=== PATIENT | male | born 1965 | race Caucasian/White ===

== ENCOUNTER 2017-03-20 19:57 | Inpatient (IN) | payer MEDICAID, OTHER ==
[~2017-03-20] VITALS: Ht 170.2 cm; Wt 103.2 kg
[~2017-03-20 19:57] MED LIST: ALBUTEROL; BUDE10.2; LISI1TAB3 PO; LISINOPRIL; PAXIL; PREDNISONE; SINGULAIR; XANAX
[2017-03-20] MEDS ORDERED: MORPHINE SULFATE 4 MG/ML, 1ML IVPush PRN (21:00)
[2017-03-20] MEDS ORDERED: SODIUM CHLORIDE 0.9% 1,000ML IVBOLUS ONE (21:00)
[2017-03-20] MEDS ORDERED: SODIUM CHLORIDE FLUSH 10ML SYR IVF ONE (21:00)
[2017-03-20] MEDS ORDERED: ONDANSETRON 2MG/ML, 2ML IVP ONE (21:00)
[2017-03-20] MEDS ORDERED: MORPHINE SULFATE 4 MG/ML, 1ML ONE (21:09)
[2017-03-20] MEDS ORDERED: ONDANSETRON 2MG/ML, 2ML ONE (21:10)
[2017-03-20] MEDS ORDERED: PLEASE ENTER ALLERGIES MC SCH ×2 (21:30)
[2017-03-20 21:35] LABS: ASPARTATE AMINO TRANSFERASE 20 U/L (15-37); BLOOD UREA NITROGEN 22 mg/dL (7-18)
[2017-03-20 21:39] LABS: IS PT STATUS REG ER OR PRE ER? YES
[2017-03-20] MEDS ORDERED: AZITHROMYCIN 500 MG TABLET ONE (22:23)
[2017-03-20] MEDS ORDERED: AZITHROMYCIN 500 MG TABLET PO SCH (22:30)
[2017-03-20] MEDS ORDERED: ALBUTEROL/IPRATROPIUM 2.5MG/0.5MG, 3 ML NPPB PRN (23:30)
[2017-03-21] MEDS: SODIUM CHLORIDE 0.9% 1,000 ML IV SCH ×3 (01:06→15:52)
[2017-03-21 02:00] VITALS: BP 100/67
[2017-03-21] MEDS: methylPREDNISolone SOD SUCC 40 MG/ML IVPush SCH ×4 (02:21→23:49)
[2017-03-21] MEDS: ENOXAPARIN 40 MG/0.4 ML SQ SCH (02:21)
[2017-03-21] MEDS ORDERED: ALBUTEROL/IPRATROPIUM 2.5MG/0.5MG, 3 ML NPPB PRN ×2 (02:30→23:30)
[2017-03-21 02:33] VITALS: BP 103/60
[2017-03-21 07:54] VITALS: BP 106/67
[2017-03-21] MEDS ORDERED: FLUTICASONE/VILANTEROL 100-25MCG/INH INH SCH (09:00)
[2017-03-21 13:20] VITALS: BP 107/64
[2017-03-21] MEDS ORDERED: CEFTRIAXONE 1,000 MG in SODIUM CHLORIDE 0.9% 50 ML IV SCH (17:30)
[2017-03-21] MEDS: DOXYCYCLINE 100 MG in DEXTROSE 5% 250 ML IV SCH (18:41)
[2017-03-21 20:00] VITALS: BP 115/61
[2017-03-22] MEDS ORDERED: ALBU0.63 NEB
[2017-03-22] MEDS ORDERED: ALPR0.25 PO
[2017-03-22] MEDS ORDERED: FLUT1AER INH
[2017-03-22] MEDS ORDERED: ZOLP-413 PO
[2017-03-22] MEDS ORDERED: ALBU18HF INH
[2017-03-22] MEDS ORDERED: PARO12.517 PO
[2017-03-22 02:00] VITALS: BP 122/73
[2017-03-22] MEDS ORDERED: TRAZODONE 100MG TABLET PO ONE (02:00)
[2017-03-22] MEDS: ENOXAPARIN 40 MG/0.4 ML SQ SCH (02:15)
[2017-03-22] MEDS: SODIUM CHLORIDE 0.9% 1,000 ML IV SCH ×2 (02:15→11:00)
[2017-03-22] MEDS: DOXYCYCLINE 100 MG in DEXTROSE 5% 250 ML IV SCH (06:13)
[2017-03-22 06:57] LABS: BLOOD UREA NITROGEN 21 mg/dL (7-18)
[2017-03-22 07:14] LABS: DIFF TOTAL CELLS COUNTED 100 CELL DIFF
[2017-03-22 07:16] LABS: VERIFY COUNTS? YES
[2017-03-22 07:36] VITALS: BP 117/76
[2017-03-22] MEDS: methylPREDNISolone SOD SUCC 40 MG/ML IVPush SCH (08:49)
[2017-03-22] MEDS ORDERED: CEFD300C37 PO (10:53)
[2017-03-22] MEDS ORDERED: DOXY100T PO (10:53)
== END 2017-03-22 13:10 | disposition home or self-care (01) | DRG 682 ==
LOC: ED 21:29 → EDIP 22:20 → 4EST 23:26
PROVIDERS: ADMIT Internal Medicine; ATTEND Internal Medicine
DX: N17.0 Acute kidney failure with tubular necrosis (principal); J96.21 Acute and chronic respiratory failure with hypoxia; J44.1 Chronic obstructive pulmonary disease with (acute) exacerbation; J45.901 Unspecified asthma with (acute) exacerbation; D72.829 Elevated white blood cell count, unspecified; G89.29 Other chronic pain; M54.9 Dorsalgia, unspecified; M25.50 Pain in unspecified joint; K21.9 Gastro-esophageal reflux disease without esophagitis; I11.9 Hypertensive heart disease without heart failure; E86.0 Dehydration; E66.9 Obesity, unspecified; Z68.35 Body mass index [BMI] 35.0-35.9, adult; Z91.018 Allergy to other foods; Z82.49 Family history of ischemic heart disease and other diseases of the circulatory system; Z83.3 Family history of diabetes mellitus; Z99.81 Dependence on supplemental oxygen
CPT/HCPCS: 36415; 71010; 80048; 80053; 83880; 84145; 84484; 85025; 87040; 93005; 96361; 96374; 96375; J0696; J1650; J2405; J7060; J2920; J7030; J7512

== ENCOUNTER 2019-05-12 01:47 | Emergency (ER) | payer MEDICAID, OTHER ==
[~2019-05-12] VITALS: Ht 170.2 cm; Wt 99.0 kg
[~2019-05-12 01:47] MED LIST changes: +ALBU0.63 NEB; +ALBU18HF INH; +ALPR0.25 PO; +CEFD300C37 PO; +DOXY100T PO; +FLUT1AER INH; +PARO12.517 PO; +ZOLP-413 PO
[2019-05-12 01:50] VITALS: BP 151/88
--- NOTE | 2019-05-12 02:21 | NUR ---
na x1
--- NOTE | 2019-05-12 02:21 | NUR ---
NOT IN LOBBY X1
--- NOTE | 2019-05-12 02:23 | NUR ---
WHEN PT. WAS CALLED TO COME BACK TO ROOM THIS RN WITNESSED PT. WALKING OUT OF ED. RN WALKED OUT DOOR TO CALL PT. AND PT. SHOUTED "YOU ARE CALLING EVERYONE BACK BEFORE ME THIS IS BULLSHIT I AM GOING TO [facility]!" THIS RN EXPLAINED THAT OTHERS HAD BEEN WATING IN THE LOBBY PRIOR TO HIM AND HE SHOUTED "I DON'T CARE BITCH, YOU KEEP CALLING THE SAME NAME AN OBVIOUSLY HE IS NOT HERE. SHUT UP BITCH".
== END 2019-05-12 02:27 | disposition left against medical advice (07) ==
LOC: ED 02:16
DX: R06.02 Shortness of breath (principal); M79.10 Myalgia, unspecified site; Z53.21 Procedure and treatment not carried out due to patient leaving prior to being seen by health care provider
CPT/HCPCS: 93005; 99281

== ENCOUNTER 2020-07-18 10:32 | Emergency (ER) | payer MEDICAID ==
[~2020-07-18] VITALS: Ht 170.2 cm; Wt 99.6 kg
[~2020-07-18 10:32] MED LIST changes: +LISI1TAB23 PO; -LISI1TAB3 PO
--- NOTE | 2020-07-18 10:58 | NUR ---
ASSUMED CARE OF PATIENT. APPLIED CONTINUOUS SPO2 AND CARDIAC MONITORS TO PATIENT.
[2020-07-18] MEDS ORDERED: METHOCARBAMOL 750 MG TABLET PO ONE (11:00)
[2020-07-18] MEDS ORDERED: METHOCARBAMOL 750 MG TABLET ONE (11:05)
[2020-07-18 11:56] LABS: ALBUMIN 3.5 g/dL (3.4-5.0); ANION GAP 5 mmol/L (5-15); CALCIUM 8.7 mg/dL (8.5-10.1); CHLORIDE 111 mmol/L (98-107); CREATININE 1.21 mg/dL (0.7-1.3)
[2020-07-18 11:59] LABS: BASOPHILS # (AUTO) 0.03 x10^3/uL (0-0.1); BASOPHILS % (AUTO) 0 % (0-1); EOSINOPHILS # (AUTO) 0.11 x10^3/uL (0-0.4); EOSINOPHILS % (AUTO) 2 % (1-7); LYMPHOCYTES # (AUTO) 1.38 x10^3/uL (1-3.4); LYMPHOCYTES % (AUTO) 18 % (22-44); MD NO; MEAN CORPUSCULAR HGB CONC 32.8 g/dL (33.2-36.2); MEAN CORPUSCULAR VOLUME 97.8 fL (81-97); MEAN PLATELET VOLUME 8.2 fL (7.4-10.4); MONOCYTES # (AUTO) 0.56 x10^3/uL (0.2-0.8); MONOCYTES % (AUTO) 7 % (2-9); NEUTROPHILS # (AUTO) 5.44 x10^3/uL (1.8-6.8); NEUTROPHILS % (AUTO) 72 % (42-75); PLATELET COUNT 209 x10^3/uL (130-400); RED BLOOD COUNT 4.47 x10^6/uL (4.38-5.82); RED CELL DISTRIBUTION WIDTH 13.6 % (9.4-14.8); TROPONIN I < 0.015 ng/mL (0.000-0.045)
[2020-07-18 12:09] VITALS: BP 139/72
--- NOTE | 2020-07-18 12:17 | NUR ---
PT REPORTS PAIN IMPROVED AFTER MEDICATION
--- NOTE | 2020-07-18 14:20 | NUR ---
Patient/Caregiver given discharge instructions and they have confirmed that they understand the instructions. Patient ambulatory with steady gait.
== END 2020-07-18 14:22 | disposition home or self-care (01) ==
LOC: ED 11:05
DX: M62.838 Other muscle spasm (principal); R07.89 Other chest pain; M25.512 Pain in left shoulder; M54.2 Cervicalgia; R94.31 Abnormal electrocardiogram [ECG] [EKG]; I10 Essential (primary) hypertension; K21.9 Gastro-esophageal reflux disease without esophagitis; J44.9 Chronic obstructive pulmonary disease, unspecified
CPT/HCPCS: 36415; 71045; 80048; 82040; 84484; 85025; 93005; 99285